=== PATIENT | male | born 2000 | race Caucasian/White ===

== ENCOUNTER 2025-04-06 03:37 | Emergency (ER) | payer OTHER, SELFPAY ==
--- OUTSIDE RECORDS SUMMARY | 2025-04-06 03:40 | XMS REPORT | Continuity of Care Document ---
Author Name Unknown Address [address] [facility] [address] [place] [address] [facility] [address] [facility] [place] [address] Care Team Providers Care Anodic Treater Name Role Phone MD LIVIER ENCISO Primary Care Physician BRIAN MILLER Attending Clinician Unavailable LAQUITA ADAMSON Attending Clinician UnavailJOSE Oconnell Attending Clinician Unavailable Problems Condition Name Condition Details Condition Category Status Onset Date Resolution Date Last Treatment Date Treating Clinician Comments Source Upper respirator y tract infection Problem [facility] Vital Signs Vital Name Observation Time Observation Value Comments S ource Weight 2025-03-15 20:54:00 97.458389 kg [facility] BMI (Body Mass Index) 2025-03-15 20:54:00 32.7 kg/m2 [facility] Height 2025-03-15 20:54:00 172.513761 cm [facility] Encounters Start Date/Time End Date/Time Encounter Type Admission Type Attending Clinicians Care Facility Care Department Encounter ID Source 2025-03-15 20:15:00 2025-03-15 23:08:00 Emergency ER PAULBRIAN Antonio [facility] [id number] [facility] 2025-03-15 20:15:00 2025-03-15 20:15:00 Registered Emergency Room [facility] [id number] 35 [facility] 2008-12-09 17:53:00 2008-12-09 20:40:00 Emergency ER LAQUITA ADAMSON [facility] [id number] [facility] 2004-04-20 20:08:00 2004-04-20 21:35:00 Emergency ER JOSE GALARZA [facility] [id number] [facility] Notes <thead> Date/Time Note Provider Source Future Procedures Future procedure information is unavailable Future Medications Future medication information is unavailable Patient Instructions <tbody> Viral Respiratory Infection, [id number] [id number] 23:17:53 Patient Care Team <thead> Team Status: Active Member Role Status Dates LIVIER ENCISO MD primary care physician Active BRIAN MILLER MD Emergency Provider Active RAFI NARAYAN Next of Kin Active RAFI NARAYAN Emergency Contact Active RAFI GONZALES Guarantor Active [facility]
[2025-04-06] MEDS ORDERED: HYDROCODONE/APAP 5/325 MG TAB ONE (04:05)
--- NOTE | 2025-04-06 04:40 | RAD REPORT ---
INDICATION: PAIN COMPARISON: No existing relevant imaging studies are available FINDINGS: Two views of the right clavicle were obtained. BONES / JOINTS: Acute comminuted and displaced fracture of the midshaft of the right clavicle with maya perior displacement of the more medial fracture fragment. No dislocation. SOFT TISSUES: No significant abnormality. ADDITIONAL FINDINGS: None. IMPRESSION: Acute comminuted and displaced fracture of the midshaft of the right clavicle. Electronically signed by: Tommy rIving DO 04/06/2025 04:36 AM CDT NR Due to temporary technical issues with the [employer] reporting system, reports are being rosi d by the in-house radiologist without review as a courtesy to ensure prompt reporting the interpreting radiologist is fully responsible for the content of the report. Transcribed Date/Time: 04/06/2025 4:40 AM
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
[2025-04-06 05:23] VITALS: BP 147/82; TEMP 97.9; O2SAT 100
== END 2025-04-06 05:18 | disposition home or self-care (01) ==
LOC: ER 03:37
DX: S42.021A Displaced fracture of shaft of right clavicle, initial encounter for closed fracture (principal)
CPT/HCPCS: 99283